=== PATIENT | female | born 1985 | race Caucasian/White ===

== ENCOUNTER 2018-04-22 21:40 | Emergency (ER) | payer OTHER ==
[~2018-04-22] VITALS: Ht 175.3 cm; Wt 106.6 kg
[~2018-04-22 21:40] MED LIST: HYDROCODONE-AP1 EAC6 PO; KEPPRA 500 MG500 M1 PO; LISINOPRIL10 MG PO
[2018-04-22] MEDS ORDERED: CLEOCIN HCL150 MG PO (22:44)
[2018-04-22 22:52] VITALS: BP 129/80
== END 2018-04-22 22:53 | disposition home or self-care (01) ==
LOC: M.ERS 21:40
DX: K61.1 Rectal abscess (principal); G43.909 Migraine, unspecified, not intractable, without status migrainosus; I10 Essential (primary) hypertension; F41.9 Anxiety disorder, unspecified; F17.210 Nicotine dependence, cigarettes, uncomplicated; Z88.0 Allergy status to penicillin; Z88.5 Allergy status to narcotic agent; Z88.1 Allergy status to other antibiotic agents

== ENCOUNTER 2018-07-10 21:35 | Emergency (ER) | payer OTHER ==
[~2018-07-10] VITALS: Ht 175.3 cm; Wt 119.3 kg
[~2018-07-10 21:35] MED LIST changes: +CLEOCIN HCL150 MG PO
[2018-07-10 22:15] LABS: ABSOLUTE BASOPHILS 0.1 thou/uL (0.0-0.2); ABSOLUTE EOSINOPHILS 0.4 thou/uL (0.0-0.7); ABSOLUTE LYMPHOCYTES 3.2 thou/uL (0.8-5.3); ABSOLUTE MONOCYTES 0.8 thou/uL (0.0-1.2); ABSOLUTE NEUTROPHILS 5.8 thou/uL (1.6-8.1); BASOPHILS 0.7 %; EOSINOPHILS 3.7 %; HEMATOCRIT 39.6 % (37.0-47.0); HEMOGLOBIN 13.3 gm/dL (12.0-15.0); LYMPHOCYTES 31.4 %; MCH 29.3 pg (26.0-34.0); MCHC 33.7 g/dL (28.0-37.0); MCV 86.9 fL (80.0-100.0); MONOCYTES 7.9 %; MPV 7.9 fl. (7.2-11.1); NUCLEATED RBCS 0 /100WBC; PLATELET COUNT* 304 thou/uL (150-400); POLYS 56.3 %; RBC 4.55 mil/uL (4.20-5.00); RDW-CV 14.6 % (10.5-14.5); WBC 10.3 thou/uL (4.0-11.0)
[2018-07-10 22:26] LABS: CALCIUM 8.5 mg/dL (8.5-10.1); CREATININE 0.9 mg/dL (0.6-1.3); POTASSIUM 3.8 mmol/L (3.5-5.1)
[2018-07-10 22:29] LABS: ALBUMIN 3.5 g/dL (3.4-5.0); TOTAL BILIRUBIN 0.3 mg/dL (<0.1-1.0); TOTAL PROTEIN 7.1 g/dL (6.4-8.2)
[2018-07-10 22:37] LABS: URINE BILIRUBIN NEGATIVE (Negative); URINE BLOOD TRACE (Negative); URINE CLARITY CLEAR; URINE COLOR YELLOW; URINE GLUCOSE-RANDOM NEGATIVE (Negative); URINE KETONES NEGATIVE (Negative); URINE LEUKOCYTES-REFLEX NEGATIVE (Negative); URINE NITRITE-REFLEX NEGATIVE (Negative); URINE PROTEIN TRACE (Negative)
[2018-07-11] MEDS ORDERED: TRAMADOL 50 MG50 MG PO (00:36)
[2018-07-11] MEDS ORDERED: NORCO 5-325 TA1 EACH PO (00:36)
[2018-07-11] MEDS ORDERED: ZOFRAN4 MG PO (00:37)
[2018-07-11 01:09] VITALS: BP 120/90
== END 2018-07-11 01:09 | disposition home or self-care (01) ==
LOC: M.ERS 21:35
PROVIDERS: Nurse Practitioner Family
DX: R10.30 Lower abdominal pain, unspecified (principal); K64.4 Residual hemorrhoidal skin tags; F41.9 Anxiety disorder, unspecified; I10 Essential (primary) hypertension; G43.909 Migraine, unspecified, not intractable, without status migrainosus; F17.210 Nicotine dependence, cigarettes, uncomplicated; Z88.1 Allergy status to other antibiotic agents; Z88.0 Allergy status to penicillin; Z88.5 Allergy status to narcotic agent

== ENCOUNTER 2019-04-29 23:52 | Emergency (ER) | payer OTHER ==
[~2019-04-29] VITALS: Ht 175.3 cm; Wt 104.3 kg
[~2019-04-29 23:52] MED LIST changes: +NORCO 5-325 TA1 EACH PO; +TRAMADOL 50 MG50 MG PO; +ZOFRAN4 MG PO
[2019-04-30] MEDS ORDERED: LISINOPRIL40 MG PO ×2 (00:02→00:42)
[2019-04-30] MEDS ORDERED: CELEXA20 MG PO (00:42)
[2019-04-30] MEDS ORDERED: KEPPRA 500 MG500 M1 PO (00:42)
[2019-04-30] MEDS ORDERED: BUTALB-APAP-CA1 EACH PO (00:42)
[2019-04-30] MEDS ORDERED: PROZAC20 MG PO (00:42)
[2019-04-30 01:24] VITALS: BP 134/90
== END 2019-04-30 01:24 | disposition home or self-care (01) ==
LOC: M.ERS 23:52
DX: R56.9 Unspecified convulsions (principal); Z76.0 Encounter for issue of repeat prescription; G43.909 Migraine, unspecified, not intractable, without status migrainosus; I10 Essential (primary) hypertension; F41.9 Anxiety disorder, unspecified; F17.210 Nicotine dependence, cigarettes, uncomplicated; Z88.1 Allergy status to other antibiotic agents; Z88.5 Allergy status to narcotic agent; Z88.0 Allergy status to penicillin